=== PATIENT | female | born 1975 | race Two or more races ===

== ENCOUNTER 2024-10-31 15:43 | Emergency (ER) | payer BC ==
[~2024-10-31] VITALS: Ht 165.1 cm; Wt 59.0 kg
[2024-10-31] MEDS ORDERED: FINASTERIDE1 MG PO (16:01)
[2024-10-31] MEDS ORDERED: CEFTRIAXONE SODIUM 1,000 MG VIAL IM STA (17:53)
== END 2024-10-31 18:17 | disposition home or self-care (01) ==
LOC: ER 15:46
DX: R30.0 Dysuria (principal)